=== PATIENT | female | born 1965 | race Caucasian/White ===

== ENCOUNTER → 2019-02-10 | Outpatient (CLI) | payer OTHER ==
--- NOTE | 2019-02-10 10:19 | KCIC ---
Examination: MRI of the left midfoot without contrast HISTORY: History of foot pain COMPARISON: None available Technique: Multiplanar, multisequence MR imaging of the left mid foot were performed without contrast. FINDINGS: The attachment of the plantaris fascia grossly appears intact. The Achilles tendon is not included on the images. There is mild increased T2 signal identified in the soft tissue anterior to the Achilles tendon. The alignment of the tarsal bones grossly appears unremarkable. The attachment of the flexor tendons, peroneal tendons, anterior extensor compartment tendon grossly appears unremarkable. There is increased T2 signal identified in the proximal and mid fourth metatarsal likely stress reactive changes with low T1 signal identified in the lateral base of the fourth metatarsal could be stress fracture. The visualized Lisfranc ligament appears intact. IMPRESSION: 1. Increased T2 signal in the proximal and mid fourth metatarsal likely stress reactive changes with low T1 signal identified in the lateral base of the fourth metatarsal probably stress fracture. 2. Partially visualized mild increased T2 signal/edema identified anterior to the Achilles tendon could be Achilles peritendinitis/paratenonitis. Please note that the Achilles tendon was not included on the images. Electronically signed by: Neptali Aranda MD (02/10/2019 10:17 AM) [email or web address]
--- NOTE | 2019-02-10 10:37 | KCIC ---
Examination: MRI of the right midfoot without contrast HISTORY: History of foot pain COMPARISON: None available TECHNIQUE: Multiplanar, multisequence MR imaging of the right midfoot were performed without contrast. FINDINGS: The attachment of the Achilles tendon to the calcaneus grossly appears intact. There is mild increased T2 signal identified in the distal posterior tibialis tendon likely tendinopathy. The re is a probable small ossicle within the distal posterior tibialis tendon. The flexor hallucis and flexor digitorum tendon grossly appears intact. The peroneal tendon grossly appears intact The anterior extensor compartment tendons appears intact. The alignment of the tarsal bones grossly appears unremarkable. The Lisfranc ligament is intact. There is mild focal T2 signal with corresponding low T1 signal identified in the medial cuneiform, distal first metatarsal, base of fourth and fifth metatarsals probably degenerative changes. A small amount of fluid identified in the soft tissue between the third and fourth metatarsal could be intermetatarsal bursitis. There is a small 9 mm T2 signal focus identified in the distal first metatarsal could be enchondroma or cyst. Mild degenerative changes tarsometatarsal joints IMPRESSION: 1. Small amount of fluid identified in the soft tissue between the third and fourth metatarsal could be intermetatarsal bursitis. 2. Degenerative changes most in the first MTP joint. 3. Tendinosis of the posterior tibialis tendon. Electronically signed by: Neptali Aranda MD (02/10/2019 10:34 AM) [email or web address]
== END | disposition home or self-care (01) ==
LOC: KCIC MRI 07:43
PROVIDERS: ATTEND Physician Assistant Medical
DX: M79.671 Pain in right foot (principal); M79.672 Pain in left foot
CPT/HCPCS: 73721

== ENCOUNTER → 2019-10-26 | Outpatient (CLI) | payer BC ==
[~2019-10-26] MED LIST: ACYC800T PO; DEXT30TA2 PO; FLUO40CA9 PO; HYDROCODONE-IB1 EAC3 PO; LEVO50TA PO; OLAN2.5T3 PO; RIVA20TA2 PO; VENTOLIN HFA18 GM INH
--- NOTE | 2019-10-26 12:50 | CONS ---
DATE OF CONSULTATION: 10/26/2019 INITIAL CONSULTATION FOR PAIN CLINIC CHIEF COMPLAINT: Left low back pain. HISTORY OF PRESENT ILLNESS: This is a 54-year-old female who presents with history of pain since 07/2019. The patient was lifting a 50-pound bag of dog food, which she had done several times before without difficulty, but at this time, had some significant pain a few days afterwards. The patient reports it is in the left side only, occasionally radiating to the left posterior gluteus, lateral thigh, but mostly in the left back itself. The patient reports it is constant, becoming more aching and dull, throbbing at times, worse with activity, standing, walking, changing positions, better with sitting or lying down, does awaken her from sleep at least 4-5 times a night, especially if she lies on her left side. The patient reports it does not affect her bowel or bladder control, but does affect her ability to walk without any weakness in the lower extremities, but significant pain in the low back. The patient reports she has tried doing stretching exercises on her own, heat and ice application to the low back, which helped temporarily. The patient reports no loss of motor function. No weakness in the lower extremities. The patient did have a CT scan of the lumbar spine showing a broad-based disk bulge eccentric to the left at L4-L5 with mild left subarticular recess narrowing, superimposed left foraminal disk extrusion abutting the exiting left L4 nerve root with [id number] left neural foraminal narrowing. The patient reports severe loss of height at L5-S1 as well. The patient rates her disability rating from 0-10, 10 being the worst, 8 on 10 with home responsibilities, 6 with recreation, 8 with social activity, 9 with occupation, 4 with self-care and 4 with life support activities. The patient reports no formal physical therapies or other treatments. She has been taking slyy-wcy-xghkqex Aleve and Tylenol, which helps only minimally. PAST MEDICAL HISTORY: Significant for COPD, cigarette smoking, history of factor V Leiden, diarrhea, C. diff history, arthritis, depression and bipolar disease. PREVIOUS SURGERY: Include , breast augmentation and vein stripping on the left ankle. Also, fracture of the left foot with ORIF. CURRENT MEDICATIONS: Include Adderall, Prozac, Xarelto, Synthroid, Zyprexa, hydrocodone, acyclovir, Ventolin inhaler. ALLERGIES: THE PATIENT IS ALLERGIC TO AUGMENTIN. FAMILY HISTORY: Significant for no major medical problems or conditions that she lists. SOCIAL HISTORY: The patient drinks alcohol about 2-3 alcoholic drinks a day, smokes cigarettes about 1 pack a day, has for the past 30 years. Does not use any illegal, illicit or recreational drugs. 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 REVIEW OF SYSTEMS: The patient's review of systems is positive for those items mentioned in history of present illness. All systems reviewed and otherwise negative. It is complete, full and well documented on the patient's chart. PHYSICAL EXAMINATION: VITAL SIGNS: The patient's blood pressure is 136/83, pulse 74, respirations 20, temperature 98.1 degrees Fahrenheit, height is 5 feet 7 inches and weight is 166 pounds. GENERAL: The patient is awake, alert, oriented and appropriate, very pleasant demeanor. HEENT: Exam shows normocephalic, atraumatic. Extraocular movements are intact and symmetrical. Oral cavity shows mucous membranes moist and pink. Dentition is intact. NECK: Shows anterior throat supple without palpable lymphadenopathy noted. Swallow reflex symmetrical. CHEST: Shows normal on inspection. Breath sounds are clear bilaterally. Heart: Shows S1, S2 clear. No murmurs auscultated. ABDOMEN: Soft, nontender, nondistended. No palpable organomegaly is noted. No rebound or guarding demonstrated. BACK: Shows spine grossly in the midline. Normal appearing thoracic kyphosis and lumbar lordotic curvature. Lumbar paraspinous muscle shows symmetrical on inspection, on palpation shows some moderate tenderness on the left side in the mid and low lumbar distribution only, not on the right, very supple and without tenderness on the right side, is very well circumscribed in the middle and upper distribution of the left lumbar paraspinous musculature without specific hypertrophy, very firm, tender musculature without specific trigger points. The patient shows no radiation of pain, no tenderness over the spinous processes, sacrum or sacroiliac regions. The patient does show good rotational motion of lumbar spine, both laterally as well as extension and flexion without significant increase in pain. EXTREMITIES: Lower extremities show deep tendon reflexes 2+ in the patellar, 1+ tendo-calcaneus tendons. Motor exam is strong with 5/5 dorsiflexion, extension, quadriceps and hamstring flexion symmetrical. Peripheral pulses are 1+ posterior tibia. No peripheral edema is noted. The patient has had some tattooing on the left medial ankle. Straight leg raise noted to be negative for reproduction of radicular symptoms bilaterally. Gaenslen's and Deion's maneuvers are negative bilaterally as well. The patient is able to stand, stand on her toes without significant difficulty or loss of balance, walks with a normal appearing gait, does not appear to favor the right or left lower extremity significantly. SKIN: The patient's skin shows warm and dry, good turgor. No edema. No sores, rashes or bruising throughout. IMPRESSION: 1. This is a 54-year-old female with a history of low back pain, left sided since July after lifting. 2. CT scan of the lumbar spine as noted. 3. Chronic obstructive pulmonary disease. 4. Arthritis 5. Bipolar disorder. PLAN: Options were discussed with the patient, including conservative medical managements, physical therapies and interventional techniques. She would like to pursue interventional techniques. We discussed a lumbar epidural steroid injection using description as well as anatomical models to describe the procedure. The patient will wait and we will check with the patient's prescriber for holding her Xarelto for 2 days prior to lumbar epidural steroid injection. The patient will continue taking this until the clearance is received. If deemed safe and appropriate, we will have her then hold the medication for 2 days and return for lumbar epidural steroid injection at that time. In the meantime, the patient will continue with stretching and strengthening exercises, heat application to the left low back as well as medication as prescribed. SLIM CHENG MD DR: EVELYNE/allan JOB#: [id number] / [id number] RADHA Patrick
== END ==
LOC: PNCL 10:09
PROVIDERS: ATTEND Anesthesiology
DX: M54.5 Low back pain (principal); J44.9 Chronic obstructive pulmonary disease, unspecified; M19.90 Unspecified osteoarthritis, unspecified site; F31.9 Bipolar disorder, unspecified
CPT/HCPCS: G0463

== ENCOUNTER → 2019-11-15 | Outpatient (CLI) | payer BC ==
[~2019-11-15] MED LIST changes: +IOHEXOL 180 MG/ML 10 ML VIAL. ONE; +methylPREDNISolone ACETATE 40 MG/ML VIAL. ONE; +methylPREDNISolone ACETATE 80 MG/ML VIAL. ONE
--- NOTE | 2019-11-15 10:43 | PAIN ---
DATE OF SERVICE: 11/15/2019 PROGRESS NOTE FOR PAIN CLINIC DIAGNOSES: Lumbar radiculopathy with lumbar degenerative disk disease and lumbar herniated disk. HISTORY OF PRESENT ILLNESS: The patient is a 54-year-old female who returns for followup status post initial evaluation and clearance to hold her Xarelto. She had achieved permission and has held this now for 3 days, reports that she is doing a slight bit better, but still pain in the low back, left lower extremity, posterior gluteus, lateral thigh, anterior thigh, medial thigh. The patient reports it is a 5 on a scale of 10 at its worst over the past week, 3 on average, 3 at its least and is a 3 today. The patient reports it is constant, aching type, shooting and stabbing, worse with walking, standing, changing positions. The patient reports it does not awaken her from sleep at night. She is sleeping well, better with sitting or lying down. No new motor or sensory deficits, no new bowel or bladder incontinence reported. PHYSICAL EXAMINATION: VITAL SIGNS: The patient's blood pressure 143/77, pulse 88, respirations are 20, temperature 98.2 degrees Fahrenheit, height is 5 feet 7 inches, weight is 164 pounds. GENERAL: The patient is awake, alert, oriented, appropriate, very pleasant demeanor. HEENT: Head shows normocephalic, atraumatic. Extraocular movements are intact and symmetrical. Oral cavity: Mucous membranes moist and pink. Dentition is intact. NECK: Shows anterior throat supple without palpable lymphadenopathy noted. Swallow reflex symmetrical. CHEST: Shows normal on inspection. Breath sounds clear to auscultation bilaterally. HEART: Shows S1, S2 clear. No murmurs auscultated. ABDOMEN: Soft, nontender, nondistended. No palpable organomegaly is noted. No rebound or guarding demonstrated. BACK: Shows spine grossly in the midline. Normal appearing thoracic kyphosis and lumbar lordotic curvature. Lumbar paraspinous muscle shows symmetrical on inspection, with tattooing again noted. With palpation shows some mild tenderness in the low lumbar distribution bilaterally, but only diffusely without significant radiation. The patient does show good rotational motion of lumbar spine, both laterally as well as extension and flexion without significant difficulty or pain reported. EXTREMITIES: The patient's lower extremities show deep tendon reflexes at 2+ in the patellar, 1+ tendo-calcaneus tendons are equal. Motor exam is strong with 5/5 dorsiflexion, extension, quadriceps and hamstring flexion symmetrical. Peripheral pulses are 1+ posterior tibia. No peripheral edema is noted bilaterally. Options were discussed with the patient. The patient's old chart was reviewed as her current medication regimen updated. Current review of systems updated today as well. We will proceed with a lumbar epidural steroid injection today with fluoroscopic guidance. Risks were again discussed including, but not limited to bleeding, infection, possibility of epidural hematoma, subsequent neurological compromise, dural puncture, headaches, spinal cord and/or nerve damage, side effects of steroid medication and poor results regarding pain control. The patient understands and wished to proceed. The patient will return to clinic in approximately 2 weeks for followup. She was counseled as to return appointment, activity level and side effects to be aware of. DIAGNOSIS: Lumbar radiculopathy with lumbar degenerative disk disease and lumbar herniated disk. PROCEDURE: Lumbar epidural steroid injection, translaminar approach at L4-L5 level using C-arm fluoroscopic guidance under sterile prep and drape using local anesthetic. MEDICATION INJECTED: A total of 120 mg Depo-Medrol plus 10 mL of preservative-free normal saline and 2 mL of contrast. CONDITION AT DISCHARGE: Stable. The patient tolerated procedure well, had no complications. SLIM CHENG MD DR: EVELYNE/allan JOB#: [id number] / [id number]
== END ==
LOC: PNCL 10:00
PROVIDERS: ATTEND Anesthesiology
DX: M51.16 Intervertebral disc disorders with radiculopathy, lumbar region (principal)
CPT/HCPCS: 62323; J1030; J1040; Q9965